=== PATIENT | female | born 1995 | race Caucasian/White ===

== ENCOUNTER 2024-01-25 14:58 | Emergency (ER) | payer MEDICAID ==
[2024-01-25] MEDS: Oxymetazoline 0.05% Nasal Spray 30 ML Bottle NAS ONE (15:17)
== END 2024-01-25 15:25 | disposition home or self-care (01) ==
LOC: DL.ED 14:58
DX: J06.9 Acute upper respiratory infection, unspecified (principal); B97.89 Other viral agents as the cause of diseases classified elsewhere
CPT/HCPCS: 99283; A9270-GY

== ENCOUNTER 2024-01-25 21:25 | Emergency (ER) | payer MEDICARE, MEDICAID ==
[2024-01-25] MEDS ORDERED: Sodium Chloride 0.9% 10 ML Syringe FLUSH PRN (21:41)
[2024-01-25 21:47] LABS: APPEARANCE,URINE CLEAR (CLEAR); BILIRUBIN,URINE NEGATIVE (NEGATIVE); COLOR,URINE YELLOW (YELLOW); GLUCOSE,URINE NEGATIVE (NEGATIVE); KETONES,URINE NEGATIVE (NEGATIVE); LEUKOCYTE ESTERASE,URINE NEGATIVE (NEGATIVE); NITRITE,URINE NEGATIVE (NEGATIVE); OCCULT BLOOD,URINE MODERATE (NEGATIVE); PROTEIN,URINE NEGATIVE (NEGATIVE); UROBILINOGEN,URINE 0.2 mg/dL (0.2-1.0)
[2024-01-25 21:58] LABS: BASOPHILS PERCENT AUTO 0.5 % (0.0-1.0); EOSINOPHILS PERCENT AUTO 1.6 % (1.0-3.0); HEMATOCRIT 39.6 % (37.0-47.0); HEMOGLOBIN 12.8 g/dL (12.0-16.0); LYMPHOCYTES PERCENT AUTO 23.8 % (20.5-50.1); MEAN CORPUSCULAR HEMOGLOBIN 30.2 pg (27.0-34.0); MEAN CORPUSCULAR HGB CONC 32.3 g/dL (33.0-35.0); MEAN CORPUSCULAR VOLUME 93.4 fL (80-100); MONOCYTES PERCENT AUTO 6.6 % (2-8); NEUTROPHILS PERCENT AUTO 67.5 % (42.2-75.2); PLATELET COUNT,PLT 281 10^3/uL (150-450); RED BLOOD CELL COUNT 4.24 10^6/uL (4.2-5.4); WHITE BLOOD CELL COUNT,WBC 8.2 10^3/uL (5.0-10.0)
[2024-01-25 22:10] LABS: HCG QUALITATIVE,SERUM NEGATIVE (NEGATIVE)
[2024-01-25 22:16] LABS: ALANINE AMINOTRANSFERASE,ALT 36 U/L (14-59); ALBUMIN 3.8 g/dL (3.4-5.0); ALKALINE PHOSPHATASE 107 U/L (46-116); ASPARTATE AMNIOTRANSFERASE,AST 23 U/L (15-37); BILIRUBIN TOTAL 0.3 mg/dL (0.2-1.0); BLOOD UREA NITROGEN,BUN 8 mg/dL (7-18); BUN/CREATININE RATIO 8.4 (No establ ref range); CALCIUM 9.2 mg/dL (8.5-10.1); CARBON DIOXIDE,CO2 27 mmol/L (21-32); CHLORIDE,CL 99 mmol/L (98-107); CREATININE 0.95 mg/dL (0.55-1.02); EST CRCL DRUG DOSING (CG) 72.93 mL/min; ESTIMATED GFR 84 mL/min (>=60); GLUCOSE RANDOM 98 mg/dL (70-99); LIPASE 31 U/L (16-77); PROTEIN TOTAL,TP 7.6 g/dL (6.4-8.2); SODIUM,NA 135 mmol/L (136-145)
[2024-01-25] MEDS: Sodium Chloride 0.9% 1,000 ML IV ONE (22:17)
[2024-01-25 22:18] LABS: BACTERIA,URINE FEW /HPF (0-FEW/HPF); EPITHELIAL CELLS,URINE RARE /HPF (NOT SEEN); RBC,URINE 0-5 /HPF (0-5); WBC,URINE NOT SEEN /HPF (0-5/HPF)
[2024-01-25 23:33] LABS: AMPHETAMINES,URINE NEGATIVE (NEGATIVE); BARBITURATES,URINE NEGATIVE (NEGATIVE); BENZODIAZEPINE,URINE NEGATIVE (NEGATIVE); MDMA (ECSTASY), URINE NEGATIVE (NEGATIVE); METHADONE,URINE NEGATIVE (NEGATIVE); METHAMPHETAMINES,URINE NEGATIVE (NEGATIVE); OPIATES,URINE NEGATIVE (NEGATIVE); OXYCODONE,URINE NEGATIVE (NEGATIVE); PHENCYCLIDINE,URINE NEGATIVE (NEGATIVE); TCA,URINE NEGATIVE (NEGATIVE)
== END 2024-01-26 00:38 ==
LOC: DL.ED 21:25
DX: R10.9 Unspecified abdominal pain (principal)
CPT/HCPCS: 36415; 74176; 80053; 80305; 81001; 83690; 84703; 85025; 87086; 99284; J7030

== ENCOUNTER 2024-03-11 12:16 | Emergency (ER) | payer MEDICARE, MEDICAID ==
[2024-03-11] MEDS: Sodium Chloride 0.9% 1,000 ML IV ONE (13:26)
[2024-03-11 13:27] LABS: BASOPHILS PERCENT AUTO 0.2 % (0.0-1.0); EOSINOPHILS PERCENT AUTO 1.5 % (1.0-3.0); HEMOGLOBIN 13.4 g/dL (12.0-16.0); LYMPHOCYTES PERCENT AUTO 26.9 % (20.5-50.1); MEAN CORPUSCULAR HEMOGLOBIN 29.9 pg (27.0-34.0); MEAN CORPUSCULAR HGB CONC 32.7 g/dL (33.0-35.0); MEAN CORPUSCULAR VOLUME 91.5 fL (80-100); MONOCYTES PERCENT AUTO 4.6 % (2-8); NEUTROPHILS PERCENT AUTO 66.8 % (42.2-75.2); PLATELET COUNT,PLT 322 10^3/uL (150-450); RED BLOOD CELL COUNT 4.48 10^6/uL (4.2-5.4); WHITE BLOOD CELL COUNT,WBC 10.7 10^3/uL (5.0-10.0)
[2024-03-11 13:29] LABS: APPEARANCE,URINE SLIGHTLY CLOUDY (CLEAR); BILIRUBIN,URINE NEGATIVE (NEGATIVE); COLOR,URINE YELLOW (YELLOW); GLUCOSE,URINE NEGATIVE (NEGATIVE); KETONES,URINE NEGATIVE (NEGATIVE); LEUKOCYTE ESTERASE,URINE SMALL (NEGATIVE); NITRITE,URINE NEGATIVE (NEGATIVE); OCCULT BLOOD,URINE TRACE-INTACT (NEGATIVE); PROTEIN,URINE NEGATIVE (NEGATIVE); UROBILINOGEN,URINE 0.2 mg/dL (0.2-1.0)
[2024-03-11] MEDS: Famotidine 20 MG/2 ML SDV IVPUSH ONE (13:29)
[2024-03-11] MEDS: Ondansetron 4 MG/2 ML SDV IVPUSH ONE (13:29)
[2024-03-11] MEDS: Ketorolac 30 MG/ML SDV IVPUSH ONE (13:29)
[2024-03-11 13:38] LABS: BACTERIA,URINE MANY /HPF (0-FEW/HPF); EPITHELIAL CELLS,URINE MODERATE /HPF (NOT SEEN); MUCUS,URINE RARE /LPF (NOT SEEN); RBC,URINE 0-5 /HPF (0-5)
[2024-03-11 13:46] LABS: A/G RATIO 1.1; ALBUMIN 3.8 g/dL (3.4-5.0); ANION GAP 12.8 mEq/L (7-13); BILIRUBIN TOTAL 0.3 mg/dL (0.2-1.0); BUN/CREATININE RATIO 9.3 (No establ ref range); CALCIUM 9.5 mg/dL (8.5-10.1); CREATININE 0.86 mg/dL (0.55-1.02); EST CRCL DRUG DOSING (CG) 80.56 mL/min; MAGNESIUM 1.8 mg/dL (1.8-2.4); POTASSIUM,K 3.8 mmol/L (3.5-5.1); PROTEIN TOTAL,TP 7.2 g/dL (6.4-8.2)
[2024-03-11] MEDS: Ciprofloxacin in D5W 400 MG in Premix Bag 1 BAG IV ONE (14:00)
== END 2024-03-11 15:08 | disposition home or self-care (01) ==
LOC: DL.ED 12:16
DX: N39.0 Urinary tract infection, site not specified (principal); F17.200 Nicotine dependence, unspecified, uncomplicated
CPT/HCPCS: 36415; 74176; 80053; 81001; 81025; 83690; 83735; 85025; 87086; 87088; 87186; 93005; 93010; 96361; 96365; 96375; 99283; 99284; J0744; J1885; J2405; J3490; J7030

== ENCOUNTER 2024-04-29 18:48 | Emergency (ER) | payer MEDICARE, MEDICAID ==
[2024-04-29] MEDS: Ondansetron 4 MG Tab.DIS PO ONE (18:59)
[2024-04-29] MEDS: Acetaminophen 500 MG Tab PO ONE (19:00)
[2024-04-29 19:05] VITALS: BP 111/84; PULSE 86
[2024-04-29] MEDS: Take Home: Ondansetron 4 MG Tab.DIS, 5 Tab Pack PO ONE (19:22)
== END 2024-04-29 19:25 | disposition home or self-care (01) ==
LOC: DL.ED 18:48
DX: B34.9 Viral infection, unspecified (principal)
CPT/HCPCS: 87428-QW; 99283; 99284; A9270-GY; Q0162

== ENCOUNTER 2024-06-10 21:25 | Emergency (ER) | payer MEDICARE, MEDICAID ==
[2024-06-10] MEDS: Ketorolac 30 MG/ML SDV IM ONE (21:45)
== END 2024-06-10 21:49 | disposition home or self-care (01) ==
LOC: DL.ED 21:25
DX: R07.89 Other chest pain (principal)
CPT/HCPCS: 96372; 99283; 99284; J1885